=== PATIENT | male | born 1995 | race Caucasian/White ===

== ENCOUNTER 2017-01-09 12:53 | Emergency (ER) | payer BC ==
[2017-01-09 13:07] VITALS: BP 136/89; PULSE 89; RESP 18; TEMP 98.6
[2017-01-09] MEDS ORDERED: RX INFO: IV CONTRAST WAS GIVEN 1 EACH MISC MISCELLANE PRN (13:17)
[2017-01-09] MEDS ORDERED: DIPH,PERTUS(ACELL)TETVAC-LF 0.5 ML VIAL IM ONE (13:17)
[2017-01-09] MEDS ORDERED: SODIUM CHLORIDE 0.9% 500 ML IV STA (13:17)
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
--- NOTE | 2017-01-09 13:42 | XR ---
EXAMINATION TYPE: XR chest 1V portable DATE OF EXAM: 01/09/2017 COMPARISON: NONE HISTORY: Trauma and pain TECHNIQUE: Single frontal view of the chest is obtained. FINDINGS: There is no focal air space opacity, pleural effusion, or pneumothorax seen. The cardiac silhouette size is within normal limits. There are overlying cardiac leads. The osseous structures a re intact. IMPRESSION: No acute process.
--- NOTE | 2017-01-09 13:44 | XR ---
AP pelvis HISTORY: Trauma and pain Single frontal view of the pelvis Bone mineralization, joint spaces and alignment are maintained. There are oval metallic density super imposed over the left proximal femur and pubic bone. IMPRESSION: No acute fracture or dislocation, additional findings above.
[2017-01-09 13:45] LABS: Basophils % (A) 1 %; CH 30.2; Eosinophils % (A) 1 %; HCT 45.8 % (39.0-53.0); HDW 2.86; HGB 15.6 gm/dL (13.0-17.5); Luc # (Auto) 0.07; Luc % (Auto) 2; Lymphocytes % (A) 25 %; MCH 29.6 pg (25.0-35.0); MCHC 34.1 g/dL (31.0-37.0); MCV 86.7 fL (80.0-100.0); Mean Platelet Volume 6.2; Monocytes # (A) 0.2 k/uL (0-1.0); Monocytes % (A) 5 %; Neutrophils # (A) 2.6 k/uL (1.3-7.7); Neutrophils % (A) 66 %; RBC 5.28 m/uL (4.30-5.90); WBC 3.9 k/uL (3.8-10.6); WBC (Perox) 3.76
[2017-01-09 13:51] LABS: INR 1.1 (<1.1); Partial Thromboplastin Time 22.8 sec (22.0-30.0)
[2017-01-09 13:56] LABS: ALT 27 U/L (21-72); AST 23 U/L (17-59); Alcohol <10 mg/dL; Alkaline Phosphatase 51 U/L (38-126); Amylase 52 U/L (30-110); Anion Gap 11 mmol/L; Blood Urea Nitrogen 11 mg/dL (9-20); Calcium 9.5 mg/dL (8.4-10.2); Carbon Dioxide 26 mmol/L (22-30); Chloride 105 mmol/L (98-107); Glucose 121 mg/dL (74-99); Non-African American GFR(MDRD) >60 (>60 ml/min/1.73 sqM); Potassium 4.1 mmol/L (3.5-5.1); Sodium 142 mmol/L (137-145); Total Bilirubin 1.9 mg/dL (0.2-1.3); Total Protein 7.9 g/dL (6.3-8.2)
[2017-01-09 13:56] LABS: Glucose,Whole Blood 106 mg/dL (75-99)
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
[2017-01-09 14:06] LABS: Creatine Kinase 285 U/L (55-170)
[2017-01-09 14:18] LABS: Appearance,Urine Clear (Clear); Bilirubin,Urine Negative (Negative); Glucose,Urine (UA) Negative (Negative); Granular Casts,Urine 9 /lpf (0); Ketones,Urine Negative (Negative); Leukocyte Esterase,Urine Negative (Negative); Mucus,Urine Rare /hpf; Nitrite,Urine Negative (Negative); Particle Count 3041; Protein,Urine 1+ (Negative); Specific Gravity,Urine 1.029 (1.001-1.035); UA Billing (MACRO vs. MICRO) MICRO; Urobilinogen,Urine <2.0 mg/dL (<2.0); WBC,Urine <1 /hpf (0-5)
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
[2017-01-09 14:19] LABS: Troponin I <0.012 ng/mL (0.000-0.034)
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
[2017-01-09 14:26] LABS: Creatine Kinase MB 2.8 ng/mL (0.0-2.4)
== END 2017-01-09 14:51 | disposition home or self-care (01) ==
LOC: EC 12:53
DX: S01.21XA Laceration without foreign body of nose, initial encounter (principal); T24.221A Burn of second degree of right knee, initial encounter; S60.512A Abrasion of left hand, initial encounter; S60.511A Abrasion of right hand, initial encounter; S80.211A Abrasion, right knee, initial encounter; Z23 Encounter for immunization; V28.4XXA Motorcycle driver injured in noncollision transport accident in traffic accident, initial encounter; Y92.410 Unspecified street and highway as the place of occurrence of the external cause
CPT/HCPCS: 99285; 12011; 16020; 90471; 96360; 36415; 86900; 86901; 80053; 82150; 82550; 82553; 83605; 83690; 84484; 85025; 85610; 85730; 86850; 81001; 80306; 80320; 71010; 72170; 72125; 70450; 71260; 74177; 90715; Q9967; 93005

== ENCOUNTER 2019-07-13 01:17 | Emergency (ER) | payer BC ==
[2019-07-13 01:23] VITALS: BP 141/90; PULSE 94; RESP 18; TEMP 98.1
[2019-07-13] MEDS ORDERED: LIDOCAINE 1% INJ 10MG/ML (20 ML MDV) SQ ONE (01:27)
[2019-07-13] MEDS ORDERED: DIPH,PERTUS(ACELL)TETVAC-LF 0.5 ML VIAL IM ONE (01:27)
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
== END 2019-07-13 02:24 | disposition home or self-care (01) ==
LOC: EC 01:17
DX: S61.211A Laceration without foreign body of left index finger without damage to nail, initial encounter (principal); Z23 Encounter for immunization; W26.9XXA Contact with unspecified sharp object(s), initial encounter; Y93.G1 Activity, food preparation and clean up
CPT/HCPCS: 99282; 12001; 90471; 90715; J2001